=== PATIENT | male | born 1955 | race Caucasian/White ===

== ENCOUNTER 2019-05-15 | Emergency (ER) | payer BC | END 2019-05-15 19:50 | disposition home or self-care (01) | DRG 607 | DX: L57.0 Actinic keratosis (principal) ==

== ENCOUNTER 2019-05-18 | Emergency (ER) | payer BC | END 2019-05-18 17:19 | disposition home or self-care (01) | DRG 93 | DX: G89.29 Other chronic pain (principal); M54.5 Low back pain ==

== ENCOUNTER 2019-05-22 | Emergency (ER) | payer BC ==
[2019-05-22] MEDS ORDERED: GENTAMICIN0.31 OD (23:26)
== END 2019-05-22 23:41 | disposition home or self-care (01) | DRG 125 ==
DX: H10.9 Unspecified conjunctivitis (principal)